=== PATIENT | female | born 1990 | race Caucasian/White ===

== ENCOUNTER 2021-10-17 12:54 | Emergency (ER) | payer OTHER ==
[2021-10-17 13:05] VITALS: BP 107/68; PULSE 72; TEMP 98; BMI 33.9
== END 2021-10-17 13:45 | disposition home or self-care (01) ==
LOC: FER 12:54
DX: S93.402A Sprain of unspecified ligament of left ankle, initial encounter (principal); W10.9XXA Fall (on) (from) unspecified stairs and steps, initial encounter; X50.0XXA Overexertion from strenuous movement or load, initial encounter; Y93.01 Activity, walking, marching and hiking
CPT/HCPCS: 73610-TC-LT-FY; 99283-25